=== PATIENT | male | born 1940 | race Caucasian/White ===

== ENCOUNTER 2019-12-23 11:08 | Emergency (ER) | payer MEDICARE ==
[2019-12-23] MEDS ORDERED: SUCCINYLCHOLINE CHLORIDE VIAL 200 MG/10 ML VIAL IV STA (11:15)
[2019-12-23] MEDS ORDERED: SODIUM CHLORIDE 0.9% 500 ML 500 ML IV STA (11:23)
[2019-12-23] MEDS ORDERED: SODIUM CHLORIDE 0.9% 1,000 ML IV STA (11:23)
[2019-12-23 11:25] VITALS: BP 108/78; PULSE 64; RESP 16
[2019-12-23 11:37] LABS: Basophils # (A) 0.1 k/uL (0-0.2); Basophils % (A) 1 %; Eosinophils # (A) 0.2 k/uL (0-0.7); Eosinophils % (A) 1 %; HCT 43.6 % (39.0-53.0); HGB 13.4 gm/dL (13.0-17.5); Hypochromasia Marked; Lymphocytes # (A) 3.2 k/uL (1.0-4.8); Lymphocytes % (A) 25 %; MCH 32.2 pg (25.0-35.0); MCHC 30.8 g/dL (31.0-37.0); MCV 104.6 fL (80.0-100.0); Macrocytosis Slight; Mean Platelet Volume 8.8; Monocytes # (A) 0.5 k/uL (0-1.0); Monocytes % (A) 4 %; Neutrophils # (A) 8.6 k/uL (1.3-7.7); Neutrophils % (A) 68 %; Platelet Count 131 k/uL (150-450); RBC 4.17 m/uL (4.30-5.90); RDW 13.1 % (11.5-15.5); WBC 12.7 k/uL (3.8-10.6)
[2019-12-23] MEDS ORDERED: EPINEPHrine 10 ML SYRINGE (0.1 MG/ML) ONE (11:45)
--- NOTE | 2019-12-23 11:53 | XR ---
EXAMINATION TYPE: XR chest 1V portable DATE OF EXAM: 12/23/2019 COMPARISON: NONE HISTORY: Cardiac arrest. Post intubation. TECHNIQUE: Single AP portable supine view of the chest is obtained. FINDINGS: Overlying defibrillator pad right chest wall. ET tube just above cecille recommend pulling back up 4-5 cm to be in more ideal position. NGT passes below diaphragm. There is chronic parenchymal change with patchy left basilar opacity. The cardiac silhouette size is within normal limits. The osseous structures are intact. IMPRESSION: 1. Low positioning ET tube just above cecille, advise pulling back 4 to 5 cm. Satisfactory positions N GT. 2. Suboptimal study, chronic parenchymal changes with patchy left basilar acute atelectasis and/or in filtrate. Progress study advised.
[2019-12-23 11:54] LABS: Albumin 3.3 g/dL (3.5-5.0); Calcium 8.3 mg/dL (8.4-10.2); Magnesium 2.4 mg/dL (1.6-2.3); Potassium 4.9 mmol/L (3.5-5.1); Total Bilirubin 0.4 mg/dL (0.2-1.3); Total Protein 6.2 g/dL (6.3-8.2)
--- NOTE | 2019-12-23 12:08 | CT ---
EXAMINATION TYPE: CT brain cspine wo con DATE OF EXAM: 12/23/2019 COMPARISON: Chest radiograph 12/23/2019 HISTORY: cardiac arrest CT DLP: 1329.6 mGycm Automated exposure control for dose reduction was used. TECHNIQUE: CT scan of the head and cervical spine are performed without contrast. FINDINGS: Within the inferior imaged portions of the cervical spine, there is soft tissue density of the superi or mediastinum and left lung apex pleural space which is measuring acute blood product. There is dist ortion of the aortic arch with blood product outside of the suspected margins of the aortic arch and obscuration of the superior mediastinum. Patient is intubated with endotracheal tube, and enteric tub e, with nonvisualization of the distal tips. There is no acute fracture or dislocation of the cervical spine. There is reversal of the cervical lo rdosis. Diffuse degenerative changes There is no acute intracranial hemorrhage, mass effect, or midline shift identified. No extra-axial f luid collection. The ventricles and sulci are within normal limits in size. IMPRESSION: 1. Obscuration and distortion of the superior mediastinum and aortic arch, with fluid consistent with acute blood products outside the expected margins of the aortic arch and within the left apex pleura l space. Findings likely represent aortic rupture. 2. No acute fracture or dislocation evident in the cervical spine. 3. No acute intracranial hemorrhage, mass effect, or midline shift is seen. Dr. Sharri Morin discussed findings with Dr. Christiano Devine via the phone on 12/23/2019 at 11:53 AM, and results were acknowledged.
[2019-12-23 12:36] LABS: INR 1.7 (<1.2); Partial Thromboplastin Time 37.7 sec (22.0-30.0); Prothrombin Time 16.7 sec (9.0-12.0)
--- NOTE | 2019-12-23 12:43 | CT ---
EXAMINATION TYPE: CT angio thor/abd pel aorta DATE OF EXAM: 12/23/2019 COMPARISON: CT cervical spine 12/23/2019. HISTORY: Syncope. Cardiac arrest. Automated Exposure Control for Dose Reduction was Utilized. CONTRAST: CT angiography scan of the thorax, abdomen and pelvis is performed without and with IV Contrast, pat ient injected with 100 mL of Isovue 370. MIP images were generated and utilized on a separate worksta tion. FINDINGS: There are technical issues with the postcontrast CT, with intravenous contrast seen within the left a rm, and not within the vascular structures of the chest, abdomen, or pelvis. Examination is all [facility] noncontrast. There is apparent aortic rupture with density consistent with blood product seen around the ascending aorta/root, aortic arch, and proximal descending thoracic aorta. Hounsfield units ranging from 35-45 . This density is also seen within the left pleural space. There is moderate pericardial effusion whi ch also measures the same density, consistent with hemopericardium. There is a dissection flap of the aortic arch and descending thoracic aorta through the abdominal aorta to the level of the superior m esenteric artery. Uncertain if the dissection flap extends ascending thoracic aorta as well. There is no abdominal aortic aneurysm. Endotracheal tube distal tip within the mid trachea. Enteric tube distal tip and side-port within the stomach. Moderate amount of left pleural fluid, some of which measures blood product. No pneumothorax. Normal attenuation and size of the liver. No biliary ductal dilatation. No peripancreatic inflammatio n. Spleen is not enlarged. No hydronephrosis bilaterally. No evidence of bowel obstruction. No free f luid or pneumoperitoneum within the abdomen. There are multiple rib fractures bilaterally with mild displacement, and mildly displaced inferior st ernal fracture. IMPRESSION: 1. Limited noncontrast examination due to technical issues with intravenous contrast injection. 2. Dissection and rupture of the thoracic aorta, with blood product within the mediastinum, left ple ural cavity, and hemopericardium. Dissection flap extends to the suprarenal abdominal aorta. 3. Multiple mildly displaced rib fractures and mildly displaced sternal fracture, as expected status post CPR. Dr. Sharri Morin discussed findings with Dr. Christiano Devine via the phone on 12/23/2019 at 12:18 PM, and results were acknowledged.
--- NOTE | 2019-12-23 13:59 | ED ---
General Adult HPI - General Chief complaint: Cardiac Arrest/CPR Stated complaint: cardiac arrest Time Seen by Provider: 12/23/19 11:08 Source: patient, EMS, RN notes reviewed, old records reviewed Mode of arrival: EMS Limitations: altered mental status, physical limitation - History of Present Illness Initial comments: This is a gentleman of unknown age who went down at a store and a bystander started CPR and when fire department got there they put an AED on him in a said that there was no shock advice. When EMS arrived they had a pulse when they got there and they transported him to the hospital. He also had a Shaw airway placed by the fire department upon arrival. Patient upon arrival had a pulse and blood pressure. No further history is available to us time to one was with the patient at the store and no one came with the patient. - Related Data Allergies Allergy/AdvReac Type Severity Reaction Status Date / Time Unable to Assess Allergy Verified 12/23/19 11:26 Review of Systems ROS Statement: Those systems with pertinent positive or pertinent negative responses have been documented in the HPI. ROS Other: All systems not noted in ROS Statement are negative. Past Medical History Past Medical History: No Reported History History of Any Multi-Drug Resistant Organisms: None Reported Past Surgical History: No Surgical Hx Reported Past Psychological History: No Psychological Hx Reported Smoking Status: Unknown if ever smoked Past Alcohol Use History: None Reported Past Drug Use History: None Reported General Exam - General Exam Comments Initial Comments: GENERAL: Patient is completely unresponsive with occasional agonal breath. EYES: Pupils are fixed and dilated are not reactive PULMONARY: While bagging the patient here breath sounds bilaterally and the patient does take an occasional agonal breath CARDIOVASCULAR: Patient has no heart sounds ABDOMEN: No gross abnormalities noted on the abdomen SKIN: Skin is clear with no lesions or rashes and otherwise unremarkable. NEUROLOGIC: Patient is unresponsive MUSCULOSKELETAL: Patient not moving any extremities. PSYCHIATRIC: Unable to assess Limitations: altered mental status, physical limitation Course Vital Signs 12/23/19 11:15 Pulse Rate 64 Respiratory 16 Rate Blood Pressure 108/78 O2 Sat by Pulse 97 Oximetry Procedures - Intubation Paralytic: Succinylcholine Laryngoscope: Sarabia Size: 3 ET Tube Size: 8 ET Tube Uncuffed: No Tube Secured Location: teeth Tube Placement Confirmation: visualized tube passing through cords, equal breath sounds bilaterally, no breath sounds over epigastrium, confirmation by capnometry Patient Tolerated Procedure: well Intubation Complications: none Medical Decision Making - Medical Decision Making Patient's EKG showed normal sinus rhythm at 69 bpm MN interval is 134 QRS is 66 QT interval 364 QTC is 390. Patient's EKG showselevation or depression. Patient coded multiple times in the emergency department followed ACS protocol. CAT scan of the head showed no acute normalities however CT did show the top of the aorta to look like there was a dissection with rupture. I felt that CAT scan up with a CT of the aorta chest and abdomen and it did show a dissection with significant blood around the aorta I removed the Shaw tube and I intubated the patient. Patient however continues to code please see the code sheet and at 1224 our efforts seemed futile after multiple doses of epi and multiple rounds of CPR he was pronounced . - Lab Data Result diagrams: 12/23/19 11:31 12/23/19 11:31 Lab Results 12/23/19 12/23/19 12/23/19 Range/Units 11:31 11: 11:31 WBC 12.7 H (3.8-10.6) k/uL RBC 4.17 L (4.30-5.90) m/uL Hgb 13.4 (13.0-17.5) gm/dL Hct 43.6 (39.0-53.0) % MCV 104.6 H (80.0-100.0) fL MCH 32.2 (25.0-35.0) pg MCHC 30.8 L (31.0-37.0) g/dL RDW 13.1 (11.5-15.5) % Plt Count 131 L (150-450) k/uL Neutrophils % 68 % Lymphocytes % 25 % Monocytes % 4 % Eosinophils % 1 % Basophils % 1 % Neutrophils # 8.6 H (1.3-7.7) k/uL Lymphocytes # 3.2 (1.0-4.8) k/uL Monocytes # 0.5 (0-1.0) k/uL Eosinophils # 0.2 (0-0.7) k/uL Basophils # 0.1 (0-0.2) k/uL Hypochromasia Marked Macrocytosis Slight PT 16.7 H (9.0-12.0) sec INR 1.7 H (<1.2) APTT 37.7 H (22.0-30.0) sec Sodium 138 (137-145) mmol/L Potassium 4.9 (3.5-5.1) mmol/L Chloride 105 (98-107) mmol/L Carbon Dioxide 23 (22-30) mmol/L Anion Gap 10 mmol/L BUN 31 H (9-20) mg/dL Creatinine 1.32 H (0.66-1.25) mg/dL Est GFR (CKD-EPI)AfAm 45 (>60 ml/min/1.73 sqM) Est GFR (CKD-EPI)NonAf 39 (>60 ml/min/1.73 sqM) Glucose 275 H (74-99) mg/dL Calcium 8.3 L (8.4-10.2) mg/dL Magnesium 2.4 H (1.6-2.3) mg/dL Total Bilirubin 0.4 (0.2-1.3) mg/dL AST 88 H (17-59) U/L ALT 47 (4-49) U/L Alkaline Phosphatase 60 (38-126) U/L Troponin I (0.000-0.034) ng/mL Total Protein 6.2 L (6.3-8.2) g/dL Albumin 3.3 L (3.5-5.0) g/dL 12/23/19 Range/Units 11:31 WBC (3.8-10.6) k/uL RBC (4.30-5.90) m/uL Hgb (13.0-17.5) gm/dL Hct (39.0-53.0) % MCV (80.0-100.0) fL MCH (25.0-35.0) pg MCHC (31.0-37.0) g/dL RDW (11.5-15.5) % Plt Count (150-450) k/uL Neutrophils % % Lymphocytes % % Monocytes % % Eosinophils % % Basophils % % Neutrophils # (1.3-7.7) k/uL Lymphocytes # (1.0-4.8) k/uL Monocytes # (0-1.0) k/uL Eosinophils # (0-0.7) k/uL Basophils # (0-0.2) k/uL Hypochromasia Macrocytosis PT (9.0-12.0) sec INR (<1.2) APTT (22.0-30.0) sec Sodium (137-145) mmol/L Potassium (3.5-5.1) mmol/L Chloride (98-107) mmol/L Carbon Dioxide (22-30) mmol/L Anion Gap mmol/L BUN (9-20) mg/dL Creatinine (0.66-1.25) mg/dL Est GFR (CKD-EPI)AfAm (>60 ml/min/1.73 sqM) Est GFR (CKD-EPI)NonAf (>60 ml/min/1.73 sqM) Glucose (74-99) mg/dL Calcium (8.4-10.2) mg/dL Magnesium (1.6-2.3) mg/dL Total Bilirubin (0.2-1.3) mg/dL AST (17-59) U/L ALT (4-49) U/L Alkaline Phosphatase (38-126) U/L Troponin I 0.022 (0.000-0.034) ng/mL Total Protein (6.3-8.2) g/dL Albumin (3.5-5.0) g/dL Critical Care Time Critical Care Time: Yes Total Critical Care Time: 50 Disposition Clinical Impression: Thoracic aortic aneurysm, ruptured Disposition: Referrals: None,Stated [Primary Care Provider] - 1-2 days Time of Disposition: 13:58 Preliminary Cause of : Thoracic aortic dissection and rupture
== END 2019-12-23 18:25 | disposition expired ==
LOC: EDBD 11:08 → EC 11:08
DX: I71.1 Thoracic aortic aneurysm, ruptured (principal)
CPT/HCPCS: 36415; 94002; 93005; 80053; 83735; 84484; 85025; 85610; 85730; 71045; 72125; 70450; 71275; 74174; 99291; 31500; 96374; 96361; J0330; Q9967